=== PATIENT | female | born 1990 | race Caucasian/White ===

== ENCOUNTER 2021-12-24 11:16 | Emergency (ER) | payer OTHER ==
[~2021-12-24] VITALS: Ht 162.6 cm; Wt 101.3 kg
[2021-12-24 11:47] VITALS: BP 139/100
[2021-12-24 13:19] LABS: Hepatitis B Surface Antibody Positive (Negative)
== END 2021-12-24 12:30 | disposition home or self-care (01) ==
LOC: ER 11:16
DX: S61.230A Puncture wound without foreign body of right index finger without damage to nail, initial encounter (principal); W46.1XXA Contact with contaminated hypodermic needle, initial encounter; Y93.89 Activity, other specified; Y92.89 Other specified places as the place of occurrence of the external cause; Y99.8 Other external cause status
CPT/HCPCS: 36415; 86703; 86706; 86803; 87340